=== PATIENT | female | born 1950 | race Caucasian/White ===

== ENCOUNTER 2017-03-17 05:21 | Emergency (ER) | payer BC, OTHER ==
[2017-03-17] MEDS ORDERED: ONDANSETRON 4 MG/2 ML VIAL IVPB ONE (05:33)
[2017-03-17] MEDS ORDERED: ONDANSETRON 4 MG/2 ML VIAL ONE (05:37)
[2017-03-17 05:47] VITALS: BP 118/53; TEMP 98.2; BMI 24.0
--- NOTE | 2017-03-17 05:48 | PDOC ---
Attending Attestation - Resident Resident Name: Jayden Montalvo - ED Attending Attestation I have performed the following: I have examined & evaluated the patient, The case was reviewed & discussed with the resident, I agree w/resident's findings & plan, Exceptions are as noted - HPI HPI: 03/17/17 05:46 Pt c/o palpitations that woke her up from sleep. Not similar to her anxiety. Pt denies cp at this time. - Physicial Exam PE: 03/17/17 05:46 *Physical Exam General Appearance: Yes: Appropriately Dressed. No: Apparent Distress, Intoxicated HEENT: positive: EOMI, KALEE, Normal ENT Inspection, Normal Voice, TMs Normal, Pharynx Normal. negative: Pale Conjunctivae, Photophobia, Scleral Icterus (R), Scleral Icterus (L) Neck: positive: Trachea midline, Normal Thyroid, Supple. negative: Tender, Rigid, Carotid bruit, Stridor, Lymphadenopathy (R), Lymphadenopathy (L), Thyromegaly Respiratory/Chest: positive: Lungs Clear, Normal Breath Sounds. negative: Chest Tender, Respiratory Distress, Accessory Muscle Use, Labored Respiration, RES, Crackles, Rales, Rhonchi, Stridor, Wheezing, Dullness Cardiovascular: positive: Regular Rhythm, Regular Rate, S1, S2. negative: Edema , JVD, Murmur, Bradycardia, Tachycardia Vascular Pulses: Dorsalis-Pedis (R): 2+, Doralis-Pedis (L): 2+ Gastrointestinal/Abdominal: positive: Normal Bowel Sounds, Flat, Soft. negative : Tender, Organomegaly, Pulsatile Mass, Increased Bowel Sounds, Decreased BS, Distended, Guarding, Rebound, Hernia, Hepatomegaly, Spleenomegaly Lymphatic: negative: Adenopathy, Tenderness Musculoskeletal: positive: Normal Inspection. negative: CVA Tenderness, Decreased Range of Motion Extremity: positive: Normal Capillary Refill, Normal Inspection, Normal Range of Motion, Pelvis Stable. negative: Tender, Pedal Edema, Swelling, Erythema Integumentary: positive: Normal Color, Dry, Warm. negative: Cyanotic, Erythema , Jaundice, Rash Neurologic: positive: laboratory analyst II-XII NML intact, Fully Oriented, Alert, Normal Mood/ Affect, Motor Strength 5/5. negative: EOM Palsy, Facial Droop, Sensory Deficit - Medical Decision Making 03/17/17 06:37 all studies are stable. Pt advised that TSH will take at least a day to come back. Given an a Zofran ODT. Advised to take her own medications.
[2017-03-17 05:55] LABS: BASOPHIL 0.8 % (0-2.0); EOSINOPHIL 1.6 % (0-4.5); MCH 31.6 pg (25.7-33.7); MCHC 33.7 g/dl (32.0-36.0); MEAN PLT VOLUME 8.4 fl (7.5-11.1); NEUTROPHILS 36.4 % (42.8-82.8); PLATELET COUNT 271 K/MM3 (134-434); RDW 13.5 % (11.6-15.6); WHITE BLOOD COUNT 8.8 K/mm3 (4.0-10.0)
--- NOTE | 2017-03-17 06:11 | PDOC ---
History of Present Illness - General Chief Complaint: Nausea Stated Complaint: PALPITATIONS Time Seen by Provider: 03/17/17 05:26 History Source: Patient Exam Limitations: No Limitations - History of Present Illness Initial Comments: 03/17/17 06:09 The patient is a 66 year old female with significant PMH of hypothyroidism, hypertension, palpitations (well controlled with toprol), and arachnoid cyst presents to the ED with episode of palpitations and nausea that woke her up 30min ago. No vomiting, headaches, sob or chest pain. 03/17/17 06:15 03/17/17 06:18 Past History - Past Medical History Allergies/Adverse Reactions: Allergies Allergy/AdvReac Type Severity Reaction Status Date / Time epinephrine Allergy Intermediate PALPITATION Verified 03/17/17 05:32 S iodine Allergy Intermediate Rash Verified 03/17/17 05:32 erythromycin base AdvReac Intermediate DIARRHEA, Verified 03/17/17 05:32 NAUSEA codeine phosphate AdvReac Vomiting Verified 03/17/17 05:32 [From Tylenol-Codeine] SEASONAL Allergy Intermediate NASAL Uncoded 03/17/17 05:32 CONGESTION Home Medications: Ambulatory Orders Metoprolol Succinate [Toprol XL -] 25 mg PO BID 09/18/12 Levothyroxine [Synthroid -] 125 mcg PO DAILY 01/23/14 Acetaminophen/Caffeine/Butalb [Fioricet -] 1 tab PO Q6H PRN 01/30/16 Alprazolam [Xanax] 0.25 mg PO BID PRN 01/30/16 Calcium 250Mg/Vit-D 125 Units [Oscal 250 mg+D -] 1 tab PO DAILY 01/30/16 Cetirizine HCl [Zyrtec -] 10 mg PO DAILY PRN 01/30/16 Cyanocobalamin [Vitamin B12 -] 1,000 mcg PO DAILY 01/30/16 Fish Oil/Borage/Flax/Om3,6,9#1 [[place] 3-6-9 1,200 mg Softgel] 1 tab PO DAILY 01/09 Fluticasone Prop 0.05% Nasal [Flonase -] 1 - 2 spray NS DAILY PRN 01/30/16 Meloxicam 7.5 mg PO DAILY PRN 01/30/16 Multivitamins [Multivit ([facility] Formulary)] 1 tab PO DAILY 01/30/16 Ondansetron [Zofran *Odt*] 4 mg SL TID #30 od.tablet 03/17/17 Anemia: No Asthma: No Cancer: Yes (Hodgkin's lymphoma - 35 yrs ago) Cardiac Disorders: Yes (Hx palpitations) CVA: No COPD: No CHF: No Dementia: No Diabetes: No GI Disorders: No Disorders: No HTN: Yes (Dx 2010) Hypercholesterolemia: Yes (Borderline) Kidney Stones: Yes Liver Disease: No Suicide Attempt (Hx): No Seizures: No Thyroid Disease: Yes (Hypothyroidism-Dx 1981) - Surgical History Abdominal Surgery: Yes (Right inguinal hernia repair) Appendectomy: No Cardiac Surgery: No Cholecystectomy: Yes (Lap choley) Lung Surgery: No Neurologic Surgery: Yes (arachnoid (cyst drained from Lt occiput)) Orthopedic Surgery: Yes ([facility]Y[place]. BUNIONECTOMIES) - Immunization History Immunization Up to Date: Yes - Psycho/Social/Smoking Cessation Hx Anxiety: No Suicidal Ideation: No Smoking Status: No Smoking History: Never smoked Have you smoked in the past 12 months: No Number of Cigarettes Smoked Daily: 0 Information on smoking cessation initiated: No Hx Alcohol Use: No Drug/Substance Use Hx: No Substance Use Type: None Hx Substance Use Treatment: No Review of Systems - Review of Systems Constitutional: Yes: Chills. No: Diaphoresis, Fever, Night Sweats HEENTM: No: Symptoms Reported Respiratory: No: Symptoms reported Cardiac (ROS): Yes: See HPI ABD/GI: No: Symptoms Reported : No: Symptoms Reported Musculoskeletal: No: Symptoms Reported Integumentary: No: Symptoms Reported Neurological: No: Symptoms reported *Physical Exam - Vital Signs Last Vital Signs Temp Pulse Resp BP Pulse Ox 98.2 F 104 H 20 118/53 100 03/17/17 05:30 03/17/17 05:30 03/17/17 05:30 03/17/17 05:30 03/17/17 05:30 - Physical Exam General Appearance: Yes: Nourished, Appropriately Dressed. No: Apparent Distress HEENT: positive: EOMI, KALEE Neck: positive: Trachea midline, Normal Thyroid. negative: Tender Respiratory/Chest: positive: Lungs Clear, Normal Breath Sounds. negative: Chest Tender, Respiratory Distress Cardiovascular: positive: Regular Rhythm, S1, S2, Tachycardia. negative: Regular Rate, Edema Neurologic: positive: associate loan officer II-XII NML intact, Fully Oriented, Alert, Normal Mood/ Affect ED Treatment Course - LABORATORY CBC & Chemistry Diagram: 03/17/17 05:45 03/17/17 05:45 - ADDITIONAL ORDERS Additional order review: 03/17/17 05:45 RBC 4.36 MCV 94.0 MCHC 33.7 RDW 13.5 MPV 8.4 Neutrophils % 36.4 L D Lymphocytes % 53.8 H D Monocytes % 7.4 Eosinophils % 1.6 Basophils % 0.8 - Medications Given in the ED: ED Medications Discontinued Medications Generic Name Dose Route Start Last Admin Trade Name Freq PRN Reason Stop Dose Admin Ondansetron HCl 4 mg 03/17/17 05:33 03/17/17 05:47 Zofran Injection IVPB 03/17/17 05:34 4 mg ONCE ONE Administration Medical Decision Making - Medical Decision Making 03/17/17 06:18 66F with pmh of htn, hypothyroidism and palpitations presenting with palpitation and nausea. EKG: neg trops negative One episode of vomiting in the ED. patient feels better with sublingual zofran. d/c 03/17/17 06:38 03/17/17 06:39 *DC/Admit/Observation/Transfer Diagnosis at time of Disposition: Vomiting - Discharge Dispostion Disposition: HOME Admit: No - Prescriptions Prescriptions: Ondansetron [Zofran *Odt*] 4 mg SL TID #30 od.tablet - Patient Instructions Printed Discharge Instructions: DI for Nausea -- Adult
[2017-03-17 06:23] LABS: CPK 100 IU/L (26-192); TROPONIN I < 0.02 ng/ml (0.00-0.05)
[2017-03-17 06:28] LABS: ALK PHOS 83 U/L (45-117); ANION GAP 8 (8-16); BILIRUBIN,TOTAL 0.2 mg/dL (0.2-1.0); CALCIUM 8.6 mg/dL (8.5-10.1); CO2 26 mmol/L (21-32); CREATININE 0.7 mg/dL (0.55-1.02); GLUCOSE,RANDOM 111 mg/dL (74-106); SGOT/AST 21 U/L (15-37); SGPT/ALT 33 U/L (12-78); TOT PROT 7.5 g/dl (6.4-8.2)
[2017-03-17] MEDS ORDERED: ONDANSETRON *ODT* 4 MG TABLET ONE ×2 (06:35→06:40)
[2017-03-17] MEDS ORDERED: ONDANSETRON *ODT* 4 MG TABLET SL ONE (06:35)
[2017-03-17 06:58] VITALS: PULSE 84
--- NOTE | 2017-03-17 11:36 | EKG ---
Test Reason : Blood Pressure : / mmHG Vent. Rate : 097 BPM Atrial Rate : 097 BPM P-R Int : 158 ms QRS Dur : 080 ms QT Int : 336 ms P-R-T Axes : 052 021 023 degrees QTc Int : 426 ms BASELINE ARTIFACTS. SINUS RHYTHM POSSIBLE LEFT ATRIAL ENLARGEMENT BORDERLINE ECG WHEN COMPARED WITH ECG OF 02-SEP-2015 09:39, NO SIGNIFICANT CHANGE WAS FOUND REPEAT EKG IF CLINICALLY INDICATED Confirmed by JUANITA NGO MD ([id number]) on 03/17/2017 11:36:17 AM Referred By: Confirmed By:JUANITA NGO MD
== END 2017-03-17 06:58 | disposition home or self-care (01) ==
LOC: JER 05:21
PROC: 3E033GC Introduction of Other Therapeutic Substance into Peripheral Vein, Percutaneous Approach (ICD-10-PCS; principal; 2017-03-17)
DX: R11.10 Vomiting, unspecified (principal); R00.2 Palpitations; I10 Essential (primary) hypertension; E03.9 Hypothyroidism, unspecified; Z87.442 Personal history of urinary calculi; Z85.71 Personal history of Hodgkin lymphoma
CPT/HCPCS: 36415; 80053; 84443; 84484; 85025; 93005; 93010; 99284-25

== ENCOUNTER 2017-05-27 06:33 | Day surgery (SDC) | payer OTHER, BC ==
[2017-05-25 11:43] VITALS: BMI 24.0
[2017-05-27 06:57] VITALS: TEMP 98.3
[2017-05-27] MEDS ORDERED: methylPREDNISolone ACET (DEPO) 80 MG/1 ML VIAL ONE (07:27)
[2017-05-27] MEDS ORDERED: BUPIVACAINE HCL/PF 0.25% (2.5MG/ML) 10 ML VIAL ONE (07:27)
[2017-05-27] MEDS ORDERED: BUPIVACAINE HCL/PF 0.5% (5MG/ML) 10 ML VIAL ONE (07:27)
[2017-05-27] MEDS ORDERED: LIDOCAINE HCL 1%, 10 MG/ML (20ML VIAL) PNB ONE ×2 (07:43→08:25)
[2017-05-27] MEDS ORDERED: BUPIVACAINE HCL/PF 0.25% (2.5MG/ML) 10 ML VIAL IJ ONE ×2 (07:43→08:25)
[2017-05-27] MEDS ORDERED: methylPREDNISolone ACET (DEPO) 80 MG/1 ML VIAL IM ONE ×2 (07:44→08:25)
[2017-05-27] MEDS ORDERED: PROPOFOL 20 ML ONE ×2 (07:49)
[2017-05-27] MEDS ORDERED: LIDOCAINE HCL/PF 2% SDV 5ML VIAL ONE (07:49)
--- NOTE | 2017-05-27 08:50 | OP ---
DATE OF OPERATION: 05/27/2017 PREOPERATIVE DIAGNOSIS: L4-5 degenerative disk disease with lower back pain and lumbar radiculopathy. POSTOPERATIVE DIAGNOSIS: L4-5 degenerative disk disease with lower back pain and lumbar radiculopathy. ATTENDING SURGEON: Armando Barclay MD PROCEDURE: 1. Left L4-5 epidural steroid injection. 2. Intraoperative fluoroscopy. ANESTHESIA: Local with IV sedation. ANESTHESIOLOGIST: Lynne Hutton MD INDICATION: The patient is a 67-year-old female with back pain and lumbar radiculopathy which has worsened recently. She has undergone conservative treatment. She is here for the 1st epidural steroid injection. The risks of the procedure include, but are not limited to, bleeding, infection, spinal headache, and neurologic injury. The patient understands the indication for the procedure, procedure in detail, risks and benefits, and alternatives for the treatment of her lumbar condition and wishes to proceed. No guarantees were given for a favorable outcome. PROCEDURE IN DETAIL: After the patient was taken to the operating room, she was placed in the prone position with a pillow under her hips. Lumbar region was cleaned with alcohol and prepped with Betadine. The skin was infiltrated with 5 mL of 1% Xylocaine. A 22-gauge spinal needle was inserted under AP and lateral fluoroscopic guidance from a left-sided approach to the L4-5 epidural space. Loss of resistance technique was utilized. There was no CSF or blood backflow. The interlaminar approach was used. There was no CSF or blood backflow. Depo-Medrol 80 mg and 1 mL of 0.25% Marcaine were injected in the area and a sterile bandage was applied. The patient tolerated the procedure well, was returned back to the supine position, moved bilateral extremities well. She was not complaining of headache. ARMANDO BARCLAY M.D. [id number]
[2017-05-27 10:31] VITALS: BP 111/43; PULSE 76
== END 2017-05-27 10:00 | disposition home or self-care (01) ==
LOC: JASU-SURG 06:33
PROVIDERS: ATTEND Neurological Surgery
PROC: 3E0S33Z Introduction of Anti-inflammatory into Epidural Space, Percutaneous Approach (ICD-10-PCS; 2017-05-27)
PROC: B01BZZZ Fluoroscopy of Spinal Cord (ICD-10-PCS; 2017-05-27)
PROC: 3E0S3BZ Introduction of Anesthetic Agent into Epidural Space, Percutaneous Approach (ICD-10-PCS; principal; 2017-05-27 08:00)
DX: M51.16 Intervertebral disc disorders with radiculopathy, lumbar region (principal); M54.9 Dorsalgia, unspecified
CPT/HCPCS: 76000-TC

== ENCOUNTER 2021-07-07 07:21 | Emergency (ER) | payer OTHER, BC ==
[2021-07-07 07:29] VITALS: TEMP 98.4; BMI 24.3
[2021-07-07 07:48] VITALS: BP 153/73; PULSE 79
== END 2021-07-07 07:56 | disposition home or self-care (01) ==
LOC: FER 07:21
DX: R00.2 Palpitations (principal)
CPT/HCPCS: 93005; 99283-25

== ENCOUNTER 2021-07-25 07:27 | Emergency (ER) | payer OTHER, BC ==
[2021-07-25 07:51] VITALS: BP 163/87; PULSE 91; TEMP 99.2; BMI 24.0
[2021-07-26 21:06] LABS: SARS-CoV-2 NAA Detected (Not Detected)
== END 2021-07-25 08:54 | disposition home or self-care (01) ==
LOC: FER 07:27
DX: J01.00 Acute maxillary sinusitis, unspecified (principal)
CPT/HCPCS: 99283-25; C9803; U0003; U0005

== ENCOUNTER 2022-06-01 17:41 | Emergency (ER) | payer OTHER, BC ==
[2022-06-01 17:52] VITALS: TEMP 98.7; BMI 24.1
[2022-06-01] MEDS ORDERED: KETOROLAC TROMETHAMINE 60 MG/2 ML VIAL IM ONE (20:21)
[2022-06-01] MEDS ORDERED: METOCLOPRAMIDE HCL INJECTION 10 MG/2 ML VIAL IM ONE (20:22)
[2022-06-01] MEDS ORDERED: KETOROLAC TROMETHAMINE 60 MG/2 ML VIAL ONE (20:27)
[2022-06-01] MEDS ORDERED: METOCLOPRAMIDE HCL INJECTION 10 MG/2 ML VIAL ONE (20:27)
[2022-06-01 21:05] VITALS: BP 146/74; PULSE 69; RESP 16
== END 2022-06-01 21:05 | disposition home or self-care (01) ==
LOC: FER 17:41
PROC: 3E023GC Introduction of Other Therapeutic Substance into Muscle, Percutaneous Approach (ICD-10-PCS; principal; 2022-06-01)
DX: G43.909 Migraine, unspecified, not intractable, without status migrainosus (principal)
CPT/HCPCS: 70450-TC; 99284-25

== ENCOUNTER 2022-06-10 17:30 | Inpatient (IN) | payer OTHER, BC ==
[2022-06-10] MEDS ORDERED: morphine SULFATE 4 MG/ML VIAL ONE (21:02)
[2022-06-10] MEDS ORDERED: ONDANSETRON 4 MG/2 ML VIAL ONE (21:02)
[2022-06-10 21:44] LABS: BASO % 0.5 % (0-2.0); EOS % 0.2 % (0-4.5); HEMATOCRIT 42.1 % (32.4-45.2); HEMOGLOBIN 14.3 GM/dL (10.7-15.3); MCH 31.8 pg (25.7-33.7); MCHC 33.9 g/dl (32.0-36.0); MEAN CELL VOLUME 93.7 fl (80-96); MEAN PLT VOLUME 8.1 fl (7.5-11.1); MONO % 7.3 % (3.8-10.2); PLATELET COUNT 282 10^3/uL (134-434); RBC 4.49 M/mm3 (3.60-5.2); RDW 13.3 % (11.6-15.6); WHITE BLOOD COUNT 8.8 K/mm3 (4.0-10.0)
[2022-06-10 21:57] LABS: INR 1.09 (0.83-1.09); PROTHROMBIN TIME (PATIENT) 12.5 SEC (9.7-13.0)
[2022-06-10 21:59] LABS: ACTIVATED PTT 30.5 SECONDS (25.2-36.5)
[2022-06-10 22:20] LABS: CALCIUM 9.9 mg/dL (8.5-10.1)
[2022-06-10 22:21] LABS: ALBUMIN 4.4 g/dl (3.4-5.0); BLOOD UREA NITROGEN 18.3 mg/dL (7-18)
[2022-06-10 22:24] LABS: CREATININE 0.9 mg/dL (0.55-1.3)
[2022-06-10 22:25] LABS: TOT PROT 8.1 g/dl (6.4-8.2)
[2022-06-10 22:26] LABS: BILIRUBIN,TOTAL 0.3 mg/dL (0.2-1)
[2022-06-10] MEDS ORDERED: ACETAMINOPHEN 1000 MG/100 ML BAG IVPB PRN (23:42)
[2022-06-11] MEDS ORDERED: ALPRAZolam 0.25 MG TABLET PO PRN ×2 (00:59→14:52)
[2022-06-11] MEDS ORDERED: LEVOTHYROXINE NA 125 MCG TABLET (FP) PO SCH (07:00)
[2022-06-11] MEDS: valACYclovir HCL 500 MG TABLET (FP) PO SCH ×2 (09:44→10:39)
[2022-06-11] MEDS ORDERED: metoPROLOL SUCCINATE 25 MG TAB.SR.24H (FP) PO SCH (10:00)
[2022-06-11] MEDS ORDERED: ENOXAPARIN NA (PORCINE) 40 MG/0.4 ML DISP.SYRIN SQ SCH (10:00)
[2022-06-11 10:13] LABS: HEMATOCRIT 39.9 % (32.4-45.2); HEMOGLOBIN 13.6 GM/dL (10.7-15.3); MCH 32.1 pg (25.7-33.7); MCHC 34.2 g/dl (32.0-36.0); MEAN CELL VOLUME 93.9 fl (80-96); MEAN PLT VOLUME 8.5 fl (7.5-11.1); PLATELET COUNT 265 10^3/uL (134-434); RBC 4.25 M/mm3 (3.60-5.2); RDW 13.2 % (11.6-15.6); WHITE BLOOD COUNT 7.1 K/mm3 (4.0-10.0)
[2022-06-11] MEDS ORDERED: BACITRACIN 15 GM TUBE TOPICAL OINTMENT ONE (10:26)
[2022-06-11 10:27] LABS: MAGNESIUM 2.4 mg/dL (1.8-2.4)
[2022-06-11 10:28] LABS: CALCIUM 9.5 mg/dL (8.5-10.1)
[2022-06-11 10:29] LABS: BLOOD UREA NITROGEN 15.4 mg/dL (7-18)
[2022-06-11 10:30] LABS: PHOSPHOROUS 3.2 mg/dL (2.5-4.9)
[2022-06-11] MEDS ORDERED: THROMBIN (BOVINE) 5,000 UNIT VIAL TP ONE ×3 (10:30→12:55)
[2022-06-11 10:32] LABS: CREATININE 0.8 mg/dL (0.55-1.3)
[2022-06-11] MEDS ORDERED: DEXMEDETOMIDINE HCL 200 MCG/2 ML IVPB ONE (11:06)
[2022-06-11] MEDS ORDERED: SUGAMMADEX SODIUM 200 MG/2 ML VIAL ONE (11:10)
[2022-06-11] MEDS ORDERED: PROPOFOL 40 ML ONE (11:10)
[2022-06-11] MEDS ORDERED: ROCURONIUM BROMIDE 50 MG/5 ML SYRINGE ONE ×2 (11:26→12:47)
[2022-06-11] MEDS ORDERED: BENZOIN/ALOE VERA/STORAX/TOLU 58 ML BOTTLE ONE (12:34)
[2022-06-11] MEDS ORDERED: ceFAZolin SODIUM 1 GM VIAL IVPB ONE (12:42)
[2022-06-11] MEDS ORDERED: ACETAMINOPHEN INJECTION 100 ML IVPB ONE (13:13)
[2022-06-11] MEDS ORDERED: ONDANSETRON 4 MG/2 ML VIAL ONE (15:26)
[2022-06-11] MEDS ORDERED: ONDANSETRON 4 MG/2 ML VIAL IVPUSH ONE (15:30)
[2022-06-11] MEDS ORDERED: ONDANSETRON 4 MG/2 ML VIAL IVPUSH PRN (15:39)
[2022-06-11] MEDS ORDERED: LACTATED RINGERS SOLUTION 1,000 ML IV SCH (15:45)
[2022-06-11] MEDS: traMADol HCL 50 MG TABLET PO PRN (17:19)
[2022-06-11] MEDS: SODIUM CHLORIDE 1,000 ML IV SCH (18:35)
[2022-06-11] MEDS: ACETAMINOPHEN 1000 MG/100 ML BAG IVPB PRN (20:48)
[2022-06-11] MEDS: ROSUVASTATIN CA 5 MG TABLET PO SCH (21:43)
[2022-06-11] MEDS: levETIRAcetam 500 MG/5 ML INJECTION VIAL IVPB SCH (21:43)
[2022-06-11] MEDS ORDERED: ROSUVASTATIN CA 5 MG TABLET PO SCH (22:00)
[2022-06-12] MEDS: traMADol HCL 50 MG TABLET PO PRN (01:24)
[2022-06-12] MEDS: ACETAMINOPHEN 1000 MG/100 ML BAG IVPB PRN ×2 (04:38→10:45)
[2022-06-12] MEDS: LEVOTHYROXINE NA 125 MCG TABLET (FP) PO SCH (07:11)
[2022-06-12 07:15] LABS: BASO % 0.1 % (0-2.0); EOS % 0.1 % (0-4.5); HEMATOCRIT 35.6 % (32.4-45.2); LYMPH % 11.1 % (8-40); MCH 31.4 pg (25.7-33.7); MCHC 33.7 g/dl (32.0-36.0); MEAN CELL VOLUME 93.3 fl (80-96); MEAN PLT VOLUME 8.9 fl (7.5-11.1); MONO % 8.9 % (3.8-10.2); NEUT % 79.8 % (42.8-82.8); PLATELET COUNT 247 10^3/uL (134-434); RBC 3.81 M/mm3 (3.60-5.2); RDW 13.2 % (11.6-15.6); WHITE BLOOD COUNT 10.2 K/mm3 (4.0-10.0)
[2022-06-12 07:41] LABS: BLOOD UREA NITROGEN 7.2 mg/dL (7-18); MAGNESIUM 1.8 mg/dL (1.8-2.4)
[2022-06-12 07:44] LABS: CREATININE 0.5 mg/dL (0.55-1.3); PHOSPHOROUS 2.8 mg/dL (2.5-4.9)
[2022-06-12 07:45] LABS: TOT PROT 6.3 g/dl (6.4-8.2)
[2022-06-12 07:46] LABS: BILIRUBIN,TOTAL 0.6 mg/dL (0.2-1)
[2022-06-12 08:04] LABS: ALBUMIN 3.3 g/dl (3.4-5.0); CALCIUM 7.9 mg/dL (8.5-10.1)
[2022-06-12] MEDS: levETIRAcetam 500 MG/5 ML INJECTION VIAL IVPB SCH ×2 (10:46→21:15)
[2022-06-12] MEDS: metoPROLOL SUCCINATE 25 MG TAB.SR.24H (FP) PO SCH (10:46)
[2022-06-12] MEDS: valACYclovir HCL 500 MG TABLET (FP) PO SCH (11:20)
[2022-06-12] MEDS ORDERED: oxyCODONE HCL 10 MG SUSTAINED ACTING TABLET PO PRN (15:47)
[2022-06-12] MEDS: ACETAMINOPHEN 1000 MG/100 ML BAG IVPB SCH ×2 (16:25→21:16)
[2022-06-12] MEDS ORDERED: oxyCODONE HCL 5 MG TABLET PO PRN (16:27)
[2022-06-12] MEDS: SODIUM CHLORIDE 1,000 ML IV SCH (18:20)
[2022-06-12] MEDS ORDERED: ALPRAZolam 0.25 MG TABLET PO PRN (19:29)
[2022-06-12] MEDS ORDERED: FENTANYL CITRATE/PF 50 MCG/ML VIAL IVPUSH PRN (21:11)
[2022-06-12] MEDS: ROSUVASTATIN CA 5 MG TABLET PO SCH (22:21)
[2022-06-12] MEDS ORDERED: ONDANSETRON 4 MG/2 ML VIAL IVPUSH PRN (23:14)
[2022-06-12] MEDS ORDERED: HYDROmorphone HCl 2 MG/ML VIAL IVPUSH ONE (23:17)
[2022-06-13] MEDS: ACETAMINOPHEN 1000 MG/100 ML BAG IVPB SCH ×2 (03:47→10:43)
[2022-06-13] MEDS: LEVOTHYROXINE NA 125 MCG TABLET (FP) PO SCH (06:38)
[2022-06-13] MEDS ORDERED: FENTANYL CITRATE/PF 50 MCG/ML VIAL IVPUSH ONE (07:26)
[2022-06-13] MEDS ORDERED: fentaNYL CITRATE 250 MCG/5 ML VIAL ONE (07:32)
[2022-06-13 07:43] LABS: BASO % 0.2 % (0-2.0); EOS % 0.5 % (0-4.5); HEMATOCRIT 37.3 % (32.4-45.2); HEMOGLOBIN 12.3 GM/dL (10.7-15.3); LYMPH % 15.5 % (8-40); MCH 31.1 pg (25.7-33.7); MCHC 33.1 g/dl (32.0-36.0); MEAN CELL VOLUME 93.9 fl (80-96); MEAN PLT VOLUME 8.9 fl (7.5-11.1); MONO % 6.1 % (3.8-10.2); NEUT % 77.7 % (42.8-82.8); PLATELET COUNT 256 10^3/uL (134-434); RBC 3.97 M/mm3 (3.60-5.2); WHITE BLOOD COUNT 9.5 K/mm3 (4.0-10.0)
[2022-06-13 08:08] LABS: ALBUMIN 3.4 g/dl (3.4-5.0); BLOOD UREA NITROGEN 7.8 mg/dL (7-18)
[2022-06-13 08:10] LABS: CREATININE 0.6 mg/dL (0.55-1.3)
[2022-06-13 08:11] LABS: TOT PROT 6.7 g/dl (6.4-8.2)
[2022-06-13 08:12] LABS: BILIRUBIN,TOTAL 0.4 mg/dL (0.2-1)
[2022-06-13] MEDS: levETIRAcetam 500 MG/5 ML INJECTION VIAL IVPB SCH (10:43)
[2022-06-13] MEDS: valACYclovir HCL 500 MG TABLET (FP) PO SCH (10:43)
[2022-06-13] MEDS: metoPROLOL SUCCINATE 25 MG TAB.SR.24H (FP) PO SCH (10:43)
[2022-06-13] MEDS ORDERED: ONDANSETRON 4 MG/2 ML VIAL IVPUSH PRN (12:19)
[2022-06-13 15:15] VITALS: BMI 24.0
[2022-06-13] MEDS ORDERED: ACETAMINOPHEN 1000 MG/100 ML BAG IVPB SCH (16:00)
[2022-06-13] MEDS ORDERED: ACETAMINOPHEN 1000 MG/100 ML BAG IVPB PRN (17:14)
[2022-06-13] MEDS ORDERED: traMADol HCL 50 MG TABLET PO ONE (19:55)
[2022-06-13] MEDS ORDERED: levETIRAcetam 500 MG/5 ML INJECTION VIAL IVPB SCH (22:00)
[2022-06-13] MEDS: ALPRAZolam 0.25 MG TABLET PO PRN (22:12)
[2022-06-13] MEDS: ROSUVASTATIN CA 5 MG TABLET PO SCH (22:12)
[2022-06-14] MEDS: LEVOTHYROXINE NA 125 MCG TABLET (FP) PO SCH (06:24)
[2022-06-14] MEDS ORDERED: traMADol HCL 50 MG TABLET PO PRN (07:39)
[2022-06-14] MEDS ORDERED: ACETAMINOPHEN 1000 MG/100 ML BAG IVPB PRN (07:40)
[2022-06-14 09:52] LABS: BASO % 0.6 % (0-2.0); EOS % 1.5 % (0-4.5); HEMATOCRIT 37.7 % (32.4-45.2); HEMOGLOBIN 12.5 GM/dL (10.7-15.3); LYMPH % 16.4 % (8-40); MCH 30.9 pg (25.7-33.7); MCHC 33.1 g/dl (32.0-36.0); MEAN CELL VOLUME 93.3 fl (80-96); MEAN PLT VOLUME 8.6 fl (7.5-11.1); MONO % 5.2 % (3.8-10.2); NEUT % 76.3 % (42.8-82.8); PLATELET COUNT 260 10^3/uL (134-434); RBC 4.05 M/mm3 (3.60-5.2); RDW 13.3 % (11.6-15.6); WHITE BLOOD COUNT 7.2 K/mm3 (4.0-10.0)
[2022-06-14] MEDS ORDERED: valACYclovir HCL 500 MG TABLET (FP) PO SCH (10:00)
[2022-06-14] MEDS ORDERED: metoPROLOL SUCCINATE 25 MG TAB.SR.24H (FP) PO SCH (10:00)
[2022-06-14] MEDS: levETIRAcetam 500 MG TABLET (FP) PO SCH ×2 (10:03→21:07)
[2022-06-14 10:11] LABS: CALCIUM 9.3 mg/dL (8.5-10.1)
[2022-06-14 10:13] LABS: ALBUMIN 3.5 g/dl (3.4-5.0); MAGNESIUM 1.8 mg/dL (1.8-2.4)
[2022-06-14 10:16] LABS: CREATININE 0.7 mg/dL (0.55-1.3)
[2022-06-14 10:17] LABS: BILIRUBIN,TOTAL 0.3 mg/dL (0.2-1)
[2022-06-14] MEDS: ACETAMINOPHEN/CAFFEINE/BUTALBITAL 1 TAB PO PRN ×2 (11:30→21:09)
[2022-06-14] MEDS: ROSUVASTATIN CA 5 MG TABLET PO SCH (21:07)
[2022-06-14] MEDS: ALPRAZolam 0.25 MG TABLET PO PRN (21:56)
[2022-06-15 01:31] VITALS: RESP 18
[2022-06-15 05:35] VITALS: BP 127/62; PULSE 98; TEMP 98
[2022-06-15] MEDS: LEVOTHYROXINE NA 125 MCG TABLET (FP) PO SCH (06:08)
[2022-06-15] MEDS: ACETAMINOPHEN/CAFFEINE/BUTALBITAL 1 TAB PO PRN (07:33)
== END 2022-06-15 09:36 | disposition home health service (06) | DRG 27 ==
LOC: JER 17:30 → JERBED 21:53 → INTOOBSV 21:53 → JERBED 23:30 → J8W 23:39 → OBSVTOIN 06-11 14:32 → JICU 06-11 17:08 → J6S 06-13 12:19
PROVIDERS: ADMIT Internal Medicine; ATTEND Nurse Practitioner Acute Care
PROC: 0W9 Anatomical Regions, General, Drainage (ICD-10-PCS; principal; 2022-06-11 11:00)
DX: G93.0 Cerebral cysts (principal); R47.89 Other speech disturbances; I10 Essential (primary) hypertension; E03.9 Hypothyroidism, unspecified; R89.9 Unspecified abnormal finding in specimens from other organs, systems and tissues; F41.9 Anxiety disorder, unspecified; E78.5 Hyperlipidemia, unspecified
CPT/HCPCS: 36415; 70450-TC; 70553-TC; 71046-TC-FY; 80048; 80053; 83735; 84100; 84443; 85025; 85027; 85610; 85730; 86850; 86900; 86901; 87070; 87075; 87205; 88108; 88305-TC; 88307-TC; 88331-TC; 93005; 93010; 94760; 97116-GP; 97162-GP; 99285-25; A9579; C1713; C9803-CS; G0378; U0003; U0005

== ENCOUNTER 2022-11-29 18:38 | Emergency (ER) | payer OTHER, BC ==
[2022-11-29 19:05] VITALS: BP 145/62; PULSE 107; RESP 19; TEMP 98.1; BMI 24.7
== END 2022-11-29 23:01 | disposition home or self-care (01) ==
LOC: JER 18:38
DX: R51.9 Headache, unspecified (principal); W18.2XXA Fall in (into) shower or empty bathtub, initial encounter
CPT/HCPCS: 70450-TC; 71046-TC-FY; 72125-TC; 72170-TC-FY; 99284-25